=== PATIENT | male | born 1970 | race Caucasian/White ===

== ENCOUNTER → 2016-05-10 | Outpatient (CLI) | payer BC | LOC: HEART 5 13:50 | DX: R00.2 Palpitations (principal) ==

== ENCOUNTER → 2016-05-12 | Outpatient (CLI) | payer BC | LOC: HEART 5 05-10 14:00 | DX: R00.2 Palpitations (principal); I34.8 Other nonrheumatic mitral valve disorders | CPT/HCPCS: 93306 ==